=== PATIENT | male | born 1985 | race Caucasian/White ===

== ENCOUNTER 2016-11-27 12:54 | Emergency (ER) | payer BC ==
--- NOTE | 2016-12-02 13:49 | ER ---
ADMIT: 11/27/2016 RM/LOC: ER [facility] MR#: [id number] [id number] [place], [place] [id number] [facility]AV[facility] SINGH [address] [facility] [address] [address] Emergency Room Report SEX: M AGE: 31 : 1985 DATE: 11/27/2016 HISTORY OF PRESENT ILLNESS: The patient is a 31-year-old male with no past medical history, came here with multiple, 3 days of generalized fatigue and tired and feeling some dull pain in all the back and shoulders and from the upper back to the lower back bilaterally. The patient states he slept more and he felt tired all day long. The patient denies any cough or runny nose. The patient states he also had a physically demanding job, has to lift objects and work with hands. The patient denied any fever at home. PHYSICAL EXAMINATION: VITAL SIGNS: In the ER, the patient was afebrile. Vitals are stable. The patient was in no obvious pain or distress, but looks mildly lethargic and fatigued. NECK: The patient had soft neck. HEENT: No meningismus, no headaches, neural exam was normal, conjunctivae is not pale. CHEST: Clear bilaterally. HEART: Normal heart sounds. LUNGS: Clear bilaterally. ABDOMEN: Soft. The rest of the physical exam is noncontributory. The patient received IV fluid 1 L, the patient's hemoglobin of 14.1 and white BC of 5.3 with platelets of 181. Electrolyte levels were normal. The patient had a creatinine of 1.0 with glucose of 100. Creatine kinase was 221. The patient was reassured, the patient was discharged to home with return precautions and with diagnosis of possible viral syndrome. The patient was advised to follow up with the primary doctor if the symptoms did not resolve in 1 or 2 days as needed. Deven Davenport MD/ claritza JOB #: [id number] CC: Holland Saez MD, Attending Physician UNKNOWN, Family Physician
== END 2016-11-27 15:30 | disposition home or self-care (01) ==
LOC: ER 12:54
DX: B34.9 Viral infection, unspecified (principal)